=== PATIENT | male | born 1965 | race Caucasian/White ===

== ENCOUNTER 2020-02-25 17:21 | Emergency (ER) | payer OTHER, SELFPAY ==
[2020-02-25 17:35] VITALS: BP 130/79; PULSE 87; RESP 18; TEMP 36.6; O2SAT 97
[2020-02-25] MEDS: TETANUS,DIPHTHERIA,AC PERTUSSIS ADULT (0.5 ML) BOOSTRIX IM (18:14)
--- NOTE | 2020-02-25 18:47 | ED.GENADULT ---
HPI - General Adult General Chief complaint: Wound/Laceration <Tonny Armijo PA-C - Last Filed: 02/25/20 18:53> Stated complaint: hand lac <Tonny Armijo PA-C - Last Filed: 02/25/20 18:53> Time Seen by Provider: 02/25/20 17:59 <HELEN Galdamez Last Filed: 02/25/20 18:53> Source: patient <HELEN Galdamez Last Filed: 02/25/20 18:53> Mode of arrival: ambulatory <HELEN Galdamez Last Filed: 02/25/20 18:53> Limitations: no limitations <Tonny Armijo PA-C - Last Filed: 02/25/20 18:53> History of Present Illness HPI narrative: Patient is a 54-year-old male with laceration of the right hand that occurred just prior to arrival was breaking 2 sticks when he accidentally stabbed him in the webspace between the first and second digits patient is unsure as to tetanus notes mild aching pain worse with activity and movement patient presents in no distress and has not taken anything for symptoms <Tonny Armijo PA-C - Last Filed: 02/25/20 18:53> Related Data Allergies/adverse reactions: Allergies Allergy/AdvReac Type Severity Reaction Status Date / Time No Known Allergies Allergy Verified 02/25/20 17:51 <Tonny Armijo PA-C - Last Filed: 02/25/20 18:53> Review of Systems Review of Systems: All systems reviewed & are unremarkable except as noted in HPI and below <Tonny Armijo PA-C - Last Filed: 02/25/20 18:53> [facility] Past Medical History Medical History: Medical History High cholesterol Stomach ulcer Thyroid disease <HELEN Galdamez Last Filed: 02/25/20 18:53> Surgical History Surgical History: Surgical History History of back surgery History of shoulder surgery <HELEN Galdamez Last Filed: 02/25/20 18:53> Family History Family History: Family History Mother Multiple sclerosis Unknown Diabetes mellitus Heart disease Cerebrovascular accident Cancer Abnormal bleeding time Other Family history of malignant neoplasm <Tonny Armijo PA-C - Last Filed: 02/25/20 18:53> Social History Social History: Social History Smoking status: Never smoker Second hand tobacco smoke exposure: Yes Alcohol intake: current Gender identity (if verbalized by the patient): Male <Tonny Armijo PA-C - Last Filed: 02/25/20 18:53> Exam Narrative: Exam Narrative: GENERAL: Well-appearing, well-nourished, and in no acute distress. HEAD: Normocephalic, atraumatic. EYES: PERRLA and EOMI. ENT: Nares clear, no rhinorrhea or epistaxis. Mucous membranes moist. EXTREMITIES: Normal range of motion. No edema. SKIN: Warm, dry, no rash. 2 cm laceration webspace between the first and second digits of the right hand NEURO: No focal deficits. Alert and oriented x3. Neurovascularly intact PSYCH: Normal mood and affect. <Tonny Armijo PA-C - Last Filed: 02/25/20 18:53> Course Course Emergency Course: Patient in the room in no distress aware of case findings treatment plan and diagnosis agreeing to follow-up as directed wound was closed in the emergency department <Tonny Armijo PA-C - Last Filed: 02/25/20 18:53> Vital Signs Vital signs: Vital Signs Temperature 97.9 F 02/25/20 17:35 Pulse Rate 87 02/25/20 17:35 Respiratory Rate 18 02/25/20 17:35 Blood Pressure 130/79 02/25/20 17:35 Pulse Oximetry 97 02/25/20 17:35 Temperature 97.9 F 02/25/20 17:35 Pulse Rate 87 02/25/20 17:35 Respiratory Rate 18 02/25/20 17:35 Blood Pressure 130/79 02/25/20 17:35 Pulse Oximetry 97 02/25/20 17:35 <Tonny Armijo PA-C - Last Filed: 02/25/20 18:53> Vital Signs Temperature 97.9 F 02/25/20 17:35 Pulse Rate 87 05
== END 2020-02-25 19:03 | disposition home or self-care (01) ==
PROVIDERS: Emergency Provider General Practice
DX: S61.411A Laceration without foreign body of right hand, initial encounter (principal); W26.9XXA Contact with unspecified sharp object(s), initial encounter; Z23 Encounter for immunization
CPT/HCPCS: 12001; 90471; 90715; 99282

== ENCOUNTER → 2022-05-04 15:32 | Outpatient (CLI) | payer OTHER, SELFPAY ==
--- NOTE | ~2022-05-04 | XR_ITS ---
EXAMINATION: XR hand RT 2V INDICATION: Right hand pain TECHNIQUE: Two views of the right hand are obtained. COMPARISON: None available FINDINGS: There is flexion of the fifth proximal interphalangeal joint with extension at the distal i nterphalangeal joint (boutonniere deformity). No fracture is identified. There is mild osteoarthritis of multiple interphalangeal joints. Stabilization hardware is seen in the ulnar styloid. IMPRESSION: 1. Boutonniere deformity of the fifth finger, otherwise polyarticular osteoarthritis without acute fi ndings. Reviewed, dictated and finalized at location F. IMPRESSION: 1. Boutonniere deformity of the fifth finger, otherwise polyarticular osteoarth ritis without acute findings.
--- NOTE | ~2022-05-04 | XR_ITS ---
EXAMINATION: XR lumbar spine 2-3V DATE: 05/04/2022 15:57 INDICATION: Low back pain TECHNIQUE: Anteroposterior and lateral views of the lumbar spine, and cone-down lateral view of the l umbosacral junction were obtained. COMPARISON: None. FINDINGS: There are 12 degrees of lumbar levoscoliosis. There are 3 mm retrolisthesis of L2 on L3. Al ignment is otherwise normal. There is no fracture. The vertebral body heights are maintained. There i s moderate loss of intervertebral disc space height at L2-3 and L5-S1 and mild loss of intervertebral disc space height at L4-5. Small degenerative osteophytes project from the anterior endplates of mul tiple vertebral bodies. There is mild to moderate facet joint osteoarthritis of the lower lumbar spin e. IMPRESSION: 1. Mild to moderate lumbar spondylosis without acute findings Reviewed, dictated and finalized at location F.
--- NOTE | ~2022-05-04 | XR_ITS ---
EXAMINATION: XR hand LT 2V INDICATION: Left hand pain TECHNIQUE: Two views of the left hand are obtained. COMPARISON: None available FINDINGS: There is mild osteoarthritis of multiple interphalangeal joints. Bone alignment is normal. There is no fracture. The soft tissues are normal. IMPRESSION: 1. Mild polyarticular osteoarthritis. Reviewed, dictated and finalized at location F.
== END ==
PROVIDERS: PCP Internal Medicine; Visit Provider Physical Medicine & Rehabilitation
DX: M47.816 Spondylosis without myelopathy or radiculopathy, lumbar region (principal); M19.042 Primary osteoarthritis, left hand; M19.041 Primary osteoarthritis, right hand
CPT/HCPCS: 72100; 73120

== ENCOUNTER → 2022-06-06 15:47 | Outpatient (CLI) | payer OTHER, SELFPAY ==
--- NOTE | ~2022-06-06 | CT_ITS ---
EXAMINATION: CT cervical spine wo con DATE: 06/06/2022 16:06 INDICATION: Cervical radiculopathy. TECHNIQUE: Computed tomography (CT) of the cervical spine was performed without intravenous contrast. Automated exposure control and iterative reconstruction technique were employed. The dose-length pro duct was 274.66 mGy-cm. COMPARISON: None FINDINGS: Bone alignment is normal. Vertebral body heights are normal. There is mildly decreased disc height at C2-C3, severely decreased disc height at C3-C4, mildly decreased disc height at C4-C5, and severely decreased disc height at C5-C6 and C6-C7 with endplate remodeling. The following disc level s are specifically discussed: C2-C3: There is mild bilateral uncovertebral joint osteoarthritis. There is mild bilateral facet join t osteoarthritis. There is no neural foraminal stenosis. There is mild central canal stenosis. C3-C4: There is severe bilateral uncovertebral joint osteoarthritis. There is moderate bilateral face t joint osteoarthritis. There is mild bilateral neural foraminal stenosis. There is mild central martine l stenosis. C4-C5: There is mild bilateral uncovertebral joint osteoarthritis. There is severe right and moderate left facet joint osteoarthritis. There is mild bilateral neural foraminal stenosis. There is mild ce ntral canal stenosis. C5-C6: There is severe bilateral uncovertebral joint osteoarthritis. There is mild left facet joint o steoarthritis. There is mild right and moderate left neural foraminal stenosis. There is mild central canal stenosis. C6-C7: There is severe bilateral uncovertebral joint osteoarthritis. There is moderate bilateral face t joint osteoarthritis. There is mild right and moderate left neural foraminal stenosis. There is mil d central canal stenosis. C7-T1: There is mild left uncovertebral joint osteoarthritis. There is moderate and mild left facet j oint osteoarthritis. There is no neural foraminal stenosis. There is no central canal stenosis. IMPRESSION: 1. Severe cervical spondylosis. Reviewed, dictated and finalized at location A. TIONS MANAGER
== END ==
PROVIDERS: PCP Physical Medicine & Rehabilitation; Visit Provider Physical Medicine & Rehabilitation
DX: M47.22 Other spondylosis with radiculopathy, cervical region (principal)
CPT/HCPCS: 72125

== ENCOUNTER → 2022-09-13 16:26 | Outpatient (CLI) | payer OTHER, SELFPAY ==
--- NOTE | ~2022-09-13 | MR_ITS ---
EXAMINATION: MR cervical spine wo con DATE: 09/13/2022 17:09 INDICATION: Cervical radiculopathy TECHNIQUE: Magnetic resonance imaging (MRI) of the cervical spine was performed without intravenous c ontrast. Sequences included sagittal T2-weighted FSE, sagittal T2-weighted FS FSE, sagittal T1-weight ed FSE, axial MERGE and axial T2-weighted FSE. COMPARISON: None FINDINGS: Bone alignment is normal. Vertebral body heights are normal. Bone marrow signal intensity is normal . Severe disc at C6-C7. Moderate disc height loss with at C3-C4, C5-C6 and T3-T4. Mild disc height lo ss at C2-C3, C4-C5 and C7-T1 through T2-T3. Mild osteoarthritis at the atlantoaxial articulation with likely degenerative subarticular cystic change at the right base of the dens. Cord signal intensity is normal. Cervical soft tissues are unremarkable. The following disc levels are specifically discuss ed: C2-C3: Disc is minimally bulging. There is mild bilateral uncovertebral joint osteoarthritis. There i s mild left and mild to moderate right facet joint osteoarthritis. There is no neural foraminal steno sis. There is mild central canal stenosis. C3-C4: Posterior disc osteophyte complex. There is severe bilateral uncovertebral joint osteoarthriti s. There is moderate bilateral facet joint osteoarthritis. There is moderate bilateral neural foramin al stenosis. There is mild central canal stenosis. C4-C5: Disc is mildly bulging. There is mild bilateral uncovertebral joint osteoarthritis. There is m oderate left and severe right facet joint osteoarthritis. There is mild right and mild to moderate le ft neural foraminal stenosis. There is mild central canal stenosis. C5-C6: Posterior disc osteophyte complex. There is severe bilateral uncovertebral joint osteoarthriti s. There is mild bilateral facet joint osteoarthritis. There is moderate to severe bilateral neural f oraminal stenosis. There is mild central canal stenosis. C6-C7: Posterior disc osteophyte complex. There is severe bilateral uncovertebral joint osteoarthriti s. There is moderate bilateral facet joint osteoarthritis. There is moderate left and mild right neur al foraminal stenosis. There is mild central canal stenosis. C7-T1: Disc is bulging. There is mild right and moderate left uncovertebral joint osteoarthritis. The re is mild left and moderate right facet joint osteoarthritis. There is mild to moderate left neural foraminal stenosis. There is no central canal stenosis. IMPRESSION: 1. Severe cervical spondylosis. Reviewed, dictated and finalized at location A. ERTY CONDITION ASSESSOR
== END ==
PROVIDERS: PCP Registered Nurse; Visit Provider Physical Medicine & Rehabilitation
DX: M47.22 Other spondylosis with radiculopathy, cervical region (principal)
CPT/HCPCS: 72141

== ENCOUNTER 2024-04-09 15:38 | Outpatient (CLI) | payer OTHER, SELFPAY ==
--- NOTE | ~2024-04-09 | MR_ITS ---
EXAMINATION: MR lumbar spine wo/w con DATE: 04/09/2024 16:32 INDICATION: Lumbar radiculopathy. TECHNIQUE: Magnetic resonance imaging (MRI) of the lumbar spine was performed without and with 20 mL MultiHance intravenous contrast. COMPARISON: Lumbar spine radiographs 05/04/2022 FINDINGS: There is 9 degrees levocurvature of lumbar spine. There is mild chronic anterior wedging of T12 and L1 vertebral bodies. There is severely decreased disc height at L2-L3, mildly decreased disc height at L3-L4, and severely decreased disc height at L4-L5 and L5-S1. The distal spinal cord signa l intensity is normal. The conus medullaris is at L1. The following disc levels are specifically disc ussed: L1-L2: The disc does not extend beyond the endplate margin. There is moderate right and mild left fac et joint osteoarthritis. There is no neural foraminal stenosis. There is no central canal stenosis. L2-L3: The disc is bulging and has an annular fissure. There is severe right and mild left facet join t osteoarthritis. There is mild bilateral neural foraminal stenosis. There is mild central canal sten osis. L3-L4: The disc is bulging. There is moderate bilateral facet joint osteoarthritis. There is mild jamee ateral neural foraminal stenosis. There is mild central canal stenosis. L4-L5: The disc is bulging and has an annular fissure. There is severe bilateral facet joint osteoart hritis. There is mild right and moderate left neural foraminal stenosis. There is mild central canal stenosis. There is posterior decompression. L5-S1: The disc is bulging. There is moderate bilateral facet joint osteoarthritis. There is mild lef t neural foraminal stenosis. There is mild central canal stenosis. IMPRESSION: 1. Severe lumbar spondylosis. Reviewed, dictated and finalized at location A.
== END 2024-04-09 15:39 | disposition home or self-care (01) ==
LOC: MICIMG 15:38
PROVIDERS: PCP Family Medicine; Visit Provider Physical Medicine & Rehabilitation Pain Medicine
DX: M47.26 Other spondylosis with radiculopathy, lumbar region (principal)
CPT/HCPCS: 72158; A9577